=== PATIENT | female | born 1955 | race Hispanic/Latino ===

== ENCOUNTER 2023-04-15 08:36 | Observation (INO) | payer BC, OTHER ==
[2023-04-15 09:06] LABS: Absolute Lymphocytes (CBC) 1.8 K/uL (0.7-4.9); Hematocrit 43.4 % (36.0-45.0); Lymphocytes % 24.5 % (15.3-44.8); MCV 87.5 fL (80-100); MPV 9.2 fL (7.6-11.3); Platelets 204 thou/uL (152-406); RBC Red Blood Cell Count 4.96 M/uL (3.86-4.86)
[2023-04-15] MEDS ORDERED: NITROGLYCERIN 0.4 MG/TAB SL ONE (09:18)
[2023-04-15] MEDS ORDERED: ASPIRIN 81 MG CHEWABLE TABLET ONE (09:18)
[2023-04-15 09:26] LABS: Albumin 3.6 g/dL (3.4-5.0); Bilirubin Direct 0.2 mg/dL (0-0.2); Bilirubin Indirect, Calculated 0.4 mg/dL (0.2-0.8); Bilirubin Total 0.6 mg/dL (0.2-1.0); Magnesium 2.2 mg/dL (1.6-2.4); Potassium 4.1 mEq/L (3.5-5.1); Protein, Total 7.2 g/dL (6.4-8.2); Troponin High Sensitivity 3.8 pg/mL (<58.9)
--- NOTE | 2023-04-15 09:33 | RAD REPORT ---
EXAM DESCRIPTION: RAD - Chest Single View - 04/15/2023 9:21 am CLINICAL HISTORY: CHEST PAIN Chest pain. COMPARISON: No comparisons FINDINGS: Portable technique limits examination quality. The lungs are grossly clear. The heart is normal in size. No displaced fractures. IMPRESSION: No acute intrathoracic process suspected.
--- NOTE | 2023-04-15 11:04 | ER ---
Nurse's Notes [facility] Name: Lyn Judge Age: 68 yrs Sex: Female : 1955 Arrival Date: 04/15/2023 Time: 08:36 Bed 7 Private MD: Diagnosis: Chest pain, unspecified Presentation: 04/15 08:56 Chief complaint: Patient states: "I started having CP yesterday that feels tight and mb9 radiates to my right arm. I just had a stress test with Dr. Cowan Thursday and I'm waiting for the results." Pt denies N/SOB. Coronavirus screen: Vaccine status: Patient reports receiving the 2nd dose of the covid vaccine. Ebola Screen: No symptoms or risks identified at this time. Initial Sepsis Screen: Does the patient meet any 2 criteria? No. Patient's initial sepsis screen is negative. Does the patient have a suspected source of infection? No. Patient's initial sepsis screen is negative. Risk Assessment: Do you want to hurt yourself or someone else? Patient reports no desire to harm self or others. Onset of symptoms was 2022. 08:56 Method Of Arrival: Ambulatory mb9 08:56 Acuity: MARLA 3 mb9 Triage Assessment: 08:59 General: Appears in no apparent distress. Behavior is calm, cooperative. Pain: mb9 Complains of pain in chest Pain radiates to right arm Pain currently is 8 out of 10 on a pain scale. Quality of pain is described as tight Pain began 1 day ago. Is continuous. EENT: No signs and/or symptoms were reported regarding the EENT system. Neuro: Camacho Agitation-Sedation Scale (RASS): 0 - Alert and Calm Level of Consciousness is awake, alert, obeys commands, Oriented to person, place, time, situation, Appropriate for age. Cardiovascular: Reports chest pain, Heart tones S1 S2 present Patient's skin is warm and dry. Respiratory: Airway is patent Respiratory effort is even, unlabored, Respiratory pattern is regular, symmetrical, Breath sounds are clear bilaterally. GI: Abdomen is round non-distended, Bowel sounds present X 4 quads. Abd is soft and non tender X 4 quads. Patient currently denies nausea. : No signs and/or symptoms were reported regarding the genitourinary system. Derm: Skin is pink, warm \\T\\ dry. Musculoskeletal: Range of motion: intact in all extremities. Historical: - Allergies: 08:58 Iodine; mb9 - Home Meds: 16:40 glipizide 10 mg Oral tablet 1 tab daily [Active]; famotidine 20 mg Oral tablet 1 tab nj1 daily [Active]; - PMHx: 08:58 Diabetes mellitus; mb9 - PSHx: 08:58 Cholecystectomy; mb9 - Immunization history:: Adult Immunizations up to date. - Social history:: Smoking status: Patient denies any tobacco usage or history of. - Family history:: not pertinent. Screenin:01 [facility] ED Fall Risk Assessment (Adult) History of falling in the last 3 months, mb9 including since admission No falls in past 3 months (0 pts) Confusion or Disorientation No (0 pts) Intoxicated or Sedated No (0 pts) Impaired Gait No (0 pts) Mobility Assist Device Used No (0 pt) Altered Elimination No (0 pt) Score/Fall Risk Level 0 - 2 = Low Risk Oriented to surroundings, Maintained a safe environment, Educated pt \\T\\ family on fall prevention, incl call for assistance when getting out of bed. Abuse screen: Denies threats or abuse. Nutritional screening: No deficits noted. Tuberculosis screening: No symptoms or risk factors identified. Assessment: 09:00 Reassessment: see triage assessment. mb9 11:00 Reassessment: Patient appears in no apparent distress at this time. Patient and/or nj1 family updated on plan of care and expected duration. Pain level reassessed. Patient is alert, oriented x 3, equal unlabored respirations, skin warm/dry/pink. Patient denies pain at this time. 12:00 Reassessment: Patient appears in no apparent distress at this time. Patient and/or nj1 family updated on plan of care and expected duration. Pain level reassessed. Patient is alert, oriented x 3, equal unlabored respirations, skin warm/dry/pink. 13:00 Reassessment: Patient appears in no apparent distress at this time. Patient and/or nj1 family updated on plan of care and expected duration. Pain level reassessed. Patient is alert, oriented x 3, equal unlabored respirations, skin warm/dry/pink. 14:15 Reassessment: Patient appears in no apparent distress at this time. Patient and/or nj1 family updated on plan of care and expected duration. Pain level reassessed. Patient is alert, oriented x 3, equal unlabored respirations, skin warm/dry/pink. Patient denies pain at this time. 15:20 Reassessment: Patient appears in no apparent distress at this time. Patient and/or nj1 family updated on plan of care and expected duration. Pain level reassessed. Patient is alert, oriented x 3, equal unlabored respirations, skin warm/dry/pink. 15:20 Pain: Complains of pain in Head Pain currently is 10 out of 10 on a pain scale. Quality nj1 of pain is described as aching. 16:37 Reassessment: Patient appears in no apparent distress at this time. Patient and/or nj1 family updated on plan of care and expected duration. Pain level reassessed. Patient is alert, oriented x 3, equal unlabored respirations, skin warm/dry/pink. Patient states feeling better. 16:40 Reassessment: Unsuccessful attempt to call report at this time. nj1 16:55 Pain:. ko1 Vital Signs: 08:56 BP 159 / 82; Pulse 68; Resp 18; Temp 98; Pulse Ox 100% ; Weight 83.91 kg; Height 5 ft. mb9 3 in. ; Pain 8/10; 09:18 BP 136 / 66; Pulse 70; Resp 18; Pulse Ox 100% ; Height 5 ft. 4 in. ; mb9 09:51 BP 122 / 74; Pulse 78; Resp 16; Pulse Ox 95% ; ko1 10:58 BP 141 / 71; Pulse 70; Resp 17; Pulse Ox 99% ; nj1 12:00 BP 139 / 75; Pulse 70; Resp 17; Pulse Ox 96% ; nj1 13:00 BP 153 / 72; Pulse 70; Resp 14; Pulse Ox 97% ; nj1 14:15 BP 140 / 57; Pulse 73; Resp 19; Pulse Ox 98% ; nj1 16:38 BP 140 / 73; Pulse 75; Resp 16; Pulse Ox 98% ; Pain 6/10; nj1 08:56 Body Mass Index 32.77 (83.91 kg, 162.56 cm) mb9 08:56 Pain Scale: Adult mb9 16:38 Pain Scale: Adult nj1 ED Course: 08:38 Patient arrived in ED. mg5 08:40 Kaveh Adair MD is Attending Physician. rt 08:48 EKG done, by ED staff, reviewed by Kaveh Adair MD. em1 08:56 Mica Kasper, RN is Primary Nurse. mb9 08:58 Triage completed. mb9 08:58 Arm band placed on. mb9 09:01 Inserted saline lock: 22 gauge in left forearm, using aseptic technique. Patient mb9 maintains SpO2 saturation greater than 95% on room air. 09:01 No provider procedures requiring assistance completed. mb9 09:01 Placed in gown. Bed in low position. Call light in reach. Side rails up X 1. Client mb9 placed on continuous cardiac and pulse oximetry monitoring. NIBP monitoring applied. monitor technician on. 09:23 XRAY Chest (1 view) In Process Unspecified. EDMS 11:03 Denver Cisneros MD is Hospitalizing Provider. rt 16:55 Patient admitted, IV remains in place. ko1 16:55 Provided Education on: na. ko1 Administered Medications: 09:06 Drug: Aspirin PO Chewable Tablet 324 mg PO once; 81 mg tablets x 4 Route: PO; mb9 09:18 Follow up: Response: No adverse reaction mb9 09:06 Drug: Nitroglycerin Sublingual 0.4 mg Sublingual once; every five minute if needed x3 mb9 Route: Sublingual; 09:16 Drug: Nitroglycerin Sublingual 0.4 mg Sublingual once; every five minute if needed x3 mb9 Route: Sublingual; 15:20 Drug: Acetaminophen PO 1000 mg PO once Route: PO; nj1 Medication: 09:01 VIS not applicable for this client. mb9 Outcome: 11:03 Decision to Hospitalize by Provider. rt 16:55 Admitted to Tele accompanied by tech, via wheelchair, room 415, with chart, ko1 16:56 Condition: stable ko1 16:56 Instructed on the need for admit, 16:57 Patient left the ED. ko1 Signatures: Dispatcher [employer] EDMS Cesar Fung em1 Jojo Tolbert, KARMEN RN Mica Coles, RN RN Kaveh Monreal MD MD rt [place] RN RN nj1 Brandie Aguirre mg5 Corrections: (The following items were deleted from the chart) 16:40 16:38 Pulse 75bpm; Resp 16bpm; Pulse Ox 98%; Pain 6/10, Adult; nj1 nj1 16:41 08:58 Home Meds: insulin: Lyumjev; mb9 nj1
--- NOTE | 2023-04-15 11:04 | EDPHYS ---
Physician Documentation [facility] Name: Lyn Judge Age: 68 yrs Sex: Female : 1955 Arrival Date: 04/15/2023 Time: 08:36 Bed 7 Private MD: ED Physician Kaveh Adair HPI: 04/15 09:07 This 68 yrs old Female presents to ER via Ambulatory with complaints of Chest rt Pain. 09:07 Patient presents to the ED with chest pain starting yesterday evening. She describes as rt pressure-like and discomfort. She states that it radiates to her right arm and is tingling on her right arm. Denies other acute complaints at this time. Of note, patient did have a stress test performed last Thursday but does not know the results for that, has an appointment with her settlement clerk next week to discuss results. Denies other acute complaints at this time, symptoms are moderate severity, no other aggravating or alleviating factors.. Historical: - Allergies: 08:58 Iodine; mb9 - Home Meds: 16:40 glipizide 10 mg Oral tablet 1 tab daily [Active]; famotidine 20 mg Oral tablet 1 tab nj1 daily [Active]; - PMHx: 08:58 Diabetes mellitus; mb9 - PSHx: 08:58 Cholecystectomy; mb9 - Immunization history:: Adult Immunizations up to date. - Social history:: Smoking status: Patient denies any tobacco usage or history of. - Family history:: not pertinent. ROS: 09:07 Constitutional: Negative for fever, chills, and weight loss, Respiratory: Negative for rt shortness of breath, cough, wheezing, and pleuritic chest pain, Abdomen/GI: Negative for abdominal pain, nausea, vomiting, diarrhea, and constipation, MS/Extremity: Negative for injury and deformity, Skin: Negative for injury, rash, and discoloration, Neuro: Negative for headache, weakness, numbness, tingling, and seizure, Psych: Negative for depression, anxiety, suicide ideation, homicidal ideation, and hallucinations, 09:07 Cardiovascular: Positive for chest pain, Negative for edema, Exam: 09:07 Constitutional: This is a well developed, well nourished patient who is awake, alert, rt and in no acute distress. Neck: Trachea midline, no thyromegaly or masses palpated, and no cervical lymphadenopathy. Supple, full range of motion without nuchal rigidity, or vertebral point tenderness. No Meningismus. Chest/axilla: Normal chest wall appearance and motion. Nontender with no deformity. No lesions are appreciated. Cardiovascular: Regular rate and rhythm with a normal S1 and S2. No gallops, murmurs, or rubs. Normal PMI, no JVD. No pulse deficits. Respiratory: Lungs have equal breath sounds bilaterally, clear to auscultation and percussion. No rales, rhonchi or wheezes noted. No increased work of breathing, no retractions or nasal flaring. Abdomen/GI: Soft, non-tender, with normal bowel sounds. No distension or tympany. No guarding or rebound. No evidence of tenderness throughout. Skin: Warm, dry with normal turgor. Normal color with no rashes, no lesions, and no evidence of cellulitis. MS/ Extremity: Pulses equal, no cyanosis. Neurovascular intact. Full, normal range of motion. Neuro: Awake and alert, GCS 15, oriented to person, place, time, and situation. Cranial nerves II-XII grossly intact. Motor strength 5/5 in all extremities. Sensory grossly intact. Cerebellar exam normal. Normal gait. Psych: Awake, alert, with orientation to person, place and time. Behavior, mood, and affect are within normal limits. 09:07 ECG was reviewed by the Attending Physician. Vital Signs: 08:56 BP 159 / 82; Pulse 68; Resp 18; Temp 98; Pulse Ox 100% ; Weight 83.91 kg; Height 5 ft. mb9 3 in. ; Pain 8/10; 09:18 BP 136 / 66; Pulse 70; Resp 18; Pulse Ox 100% ; Height 5 ft. 4 in. ; mb9 09:51 BP 122 / 74; Pulse 78; Resp 16; Pulse Ox 95% ; ko1 10:58 BP 141 / 71; Pulse 70; Resp 17; Pulse Ox 99% ; nj1 12:00 BP 139 / 75; Pulse 70; Resp 17; Pulse Ox 96% ; nj1 13:00 BP 153 / 72; Pulse 70; Resp 14; Pulse Ox 97% ; nj1 14:15 BP 140 / 57; Pulse 73; Resp 19; Pulse Ox 98% ; nj1 16:38 BP 140 / 73; Pulse 75; Resp 16; Pulse Ox 98% ; Pain 6/10; nj1 08:56 Body Mass Index 32.77 (83.91 kg, 162.56 cm) mb9 08:56 Pain Scale: Adult mb9 16:38 Pain Scale: Adult nj1 MDM: 08:42 Patient medically screened. rt 10:52 Differential diagnosis: acute myocardial infarction, coronary artery disease unstable rt angina. HEART Score: History: Highly Suspicious (2), ECG: Normal (0), Age: > or = 65 years (2), Risk Factors: 1 or 2 risk factors (1), Troponin: < or = 1 x Normal Limit (0), Total Score = 5. The patient was given aspirin in the Emergency Department. Data reviewed: vital signs, nurses notes. Consideration of Admission/Observation Patient was admitted/placed on observation. Management of patient was discussed with the following: Hospitalist: Agrees to admit. Teacher Adventure Education: Real Time Trader recommends admission. I considered the following discharge prescriptions or medication management in the emergency department Medications were administered in the Emergency Department. See MAR. Independent interpretation of the following test(s) in the Emergency Department X-Ray: My interpretation is No consolidation seen on interpretation of x-ray images. Care significantly affected by the following chronic conditions: Diabetes. Counseling: I had a detailed discussion with the patient and/or guardian regarding the historical points, exam findings, and any diagnostic results supporting the discharge/admit diagnosis, lab results, radiology results. Response to treatment: the patient's symptoms have resolved after treatment. 04/15 08:52 Order name: Basic Metabolic Panel; Complete Time: 09:29 rt 04/15 08:52 Order name: CBC with Diff; Complete Time: 09:29 rt 04/15 08:52 Order name: LFT's; Complete Time: 09:29 rt 04/15 08:52 Order name: Magnesium; Complete Time: 09:29 rt 04/15 08:52 Order name: Troponin HS; Complete Time: 09:29 rt 04/15 13:26 Order name: Urinalysis w/ reflexes EDMS 04/15 13:26 Order name: Basic Metabolic Panel EDMS 04/15 13:26 Order name: Basic Metabolic Panel EDMS 04/15 13:26 Order name: CBC with Automated Diff EDMS 04/15 13:26 Order name: CBC with Automated Diff EDMS 04/15 13:26 Order name: Lipid Profile EDMS 04/15 13:26 Order name: Lipid Profile EDMS 04/15 13:26 Order name: Magnesium EDMS 04/15 13:26 Order name: Magnesium EDMS 04/15 13:26 Order name: Phosphorus EDMS 04/15 13:26 Order name: Phosphorus EDMS 04/15 13:26 Order name: Troponin High Sensitivity EDMS 04/15 13:26 Order name: Troponin High Sensitivity EDMS 04/15 13:26 Order name: Troponin High Sensitivity EDMS 04/15 13:26 Order name: Hemoglobin A1c EDMS 04/15 13:29 Order name: T4 Free EDMS 04/15 13:29 Order name: Thyroid Stimulating Hormone EDMS 04/15 08:52 Order name: XRAY Chest (1 view); Complete Time: 09:57 rt 04/15 08:52 Order name: EKG; Complete Time: 08:53 rt 04/15 13:26 Order name: CONS Physician Consult EDMS 04/15 08:52 Order name: Cardiac monitoring; Complete Time: 09:02 rt 04/15 08:52 Order name: EKG - Nurse/Tech; Complete Time: 09:02 rt 04/15 08:52 Order name: IV Saline Lock; Complete Time: 09:02 rt 04/15 08:52 Order name: Labs collected and sent; Complete Time: 09:02 rt 04/15 08:52 Order name: O2 Per Protocol; Complete Time: 09:02 rt 04/15 08:52 Order name: O2 Sat Monitoring; Complete Time: 09:02 rt EC:07 Rate is 68 beats/min. Rhythm is regular, Normal Sinus Rhythm with No ectopy. QRS [place] rt is Normal. LA interval is normal. QRS interval is normal. QT interval is normal. No Q waves. T waves are Normal. No ST changes noted. Administered Medications: 09:06 Drug: Aspirin PO Chewable Tablet 324 mg PO once; 81 mg tablets x 4 Route: PO; mb9 09:18 Follow up: Response: No adverse reaction mb9 09:06 Drug: Nitroglycerin Sublingual 0.4 mg Sublingual once; every five minute if needed x3 mb9 Route: Sublingual; 09:16 Drug: Nitroglycerin Sublingual 0.4 mg Sublingual once; every five minute if needed x3 mb9 Route: Sublingual; 15:20 Drug: Acetaminophen PO 1000 mg PO once Route: PO; nj1 Disposition Summary: 04/15/23 11:03 Hospitalization Ordered Notes: Hospitalization Status: Observation rt Provider: Denver Cisneros rt Location: Telemetry/MedSurg (observation) rt Condition: Stable rt Problem: new rt Symptoms: have improved rt Bed/Room Type: Standard rt Room Assignment: 415(04/15/23 15:52) bd Diagnosis - Chest pain, unspecified rt Forms: - Medication Reconciliation Form rt - SBAR form rt - Leadership Thank You Letter rt Signatures: Dispatcher [employer] EDMS Kim Perez bd Mica Kasper RN RN mb9 Kaveh Adair MD MD rt [place] RN RN nj1 Corrections: (The following items were deleted from the chart) 13:27 13:26 T4 Free ordered. EDMS EDMS 13:27 13:26 Thyroid Stimulating Hormone ordered. EDMS EDMS 15:52 11:03 rt bd 16:41 08:58 Home Meds: insulin: Lyumgary; renetta nj1
--- NOTE | 2023-04-15 12:22 | EKG ---
Test Date: 2023-04-15 Test Time: 08:45:49 Rn Burn: SARANYA MEASUREMENT RESULTS: Intervals: Rate: 68 IL: 170 QRSD: 68 QT: 392 QTc: 416 Tonica: P: 46 IL: 170 QRS: 39 T: 72 INTERPRETIVE STATEMENTS: Normal sinus rhythm Normal ECG No previous ECG available for comparison Electronically Signed On 04-15-23 12:22:12 CDT by Lucho Cowan
[2023-04-15] MEDS ORDERED: MORPHINE 2 MG/ML SYR IV PRN (13:14)
[2023-04-15] MEDS ORDERED: ONDANSETRON 4 MG/2 ML VIAL IV PRN (13:14)
[2023-04-15] MEDS ORDERED: ACETAMINOPHEN 500 MG TAB ONE (15:29)
[2023-04-15 16:15] LABS: Thyroid Stimulating Hormone 2.26 uIU/mL (0.358-3.740); Troponin High Sensitivity 4.4 pg/mL (<58.9)
[2023-04-15] MEDS: INSULIN REGULAR (HUMAN) 100 UNIT/ML SQ SCH ×2 (16:30→21:00)
[2023-04-15 17:50] VITALS: BMI 32.5
[2023-04-15] MEDS ORDERED: PNEUMOCOCCAL VACCINE 0.5 ML IMVAC ONE (18:00)
--- NOTE | 2023-04-15 18:48 | P.HP ---
Certification for Inpatient Patient admitted to: Observation Patient will require the following post-hospital care: None Practitioner: I am a practitioner with admitting privileges, knowledge of patient current condition, hospital course, and medical plan of care. Services: Services provided to patient in accordance with Admission requirements found in Title 42 Section 412.3 of the Code of Federal Regulations Patient History Date of Service: 04/15/23 Reason for admission: Chest pain r/o ACS History of Present Illness: Lyn Judge a 68-year-old female with past medical history diabetes and GERD presents to the ED with chest pain started yesterday evening. Lyn states it is more like chest pressure and discomfort that radiates and tingles down her right arm. Lyn states she had a stress test done last Thursday but does not know the results and has an appoint meant with her director of scientific research, Dr. Cowan, next week to discuss those results. Echo was also performed recently as outpatient. Ischial vitals BP 159/82, HR 68, respirations 18, temp 98, pulse ox 100% on room air. Significant labs A1c 7.9, TSH 2.260, troponin 3.8 with redraw of 4.4. EKG is normal sinus rhythm, QT/QTc 392/416, heart rate 68, no ST elevation. Chest x-ray showing "no acute intrathoracic process suspect". Lyn will be admitted to hospitalist service for further evaluation of chest pain rule out ACS. Allergies iodine Allergy (Unknown, Verified 04/15/23 17:54) Hives Home Medications: Famotidine 20 mg PO DAILY 04/15/23 Fexofenadine HCl [Fern Hives] 180 mg PO DAILY 04/15/23 Glipizide [Glipizide Xl] 1 tab PO DAILY 04/15/23 - Past Medical/Surgical History Has patient received pneumonia vaccine in the past: No Diabetic: Yes -: Diabetes -: Cholecystectomy -: Both feet - Social History Smoking Status: Never smoker Alcohol use: No CD- Drugs: No Caffeine use: No Place of Residence: Home Review of Systems General: Chills Respiratory: Cough, Shortness of Breath Cardiovascular: Palpitations, Orthopnea, Other (chest pressure and discomfort) Neurological: Other (dizziness) Physical Examination - Vital Signs Temperature: 97.1 F Blood Pressure: 129/62 Pulse: 71 Respirations: 16 Pulse Ox (%): 96 - Physical Exam General: Alert, In no apparent distress, Oriented x3 HEENT: Atraumatic, Normocephalic, PERRLA Neck: Supple, 2+ carotid pulse no bruit, JVD not distended Respiratory: Clear to auscultation bilaterally, Normal air movement Cardiovascular: No edema, Normal pulses, Regular rate/rhythm, Normal S1 S2 Capillary refill: <2 Seconds Gastrointestinal: Normal bowel sounds, Soft and benign Musculoskeletal: No clubbing, No swelling, No contractures Integumentary: No rashes, No breakdown, No significant lesion Neurological: Normal speech, Normal strength at 5/5 x4 extr, Normal tone - Studies Laboratory Data (last 24 hrs) 04/15/23 04/15/23 08:55 08:55 WBC 7.30 Hgb 14.7 Hct 43.4 Plt Count 204 Sodium 141 Potassium 4.1 BUN 9 Creatinine 0.48 L Glucose 152 H Magnesium 2.2 Total Bilirubin 0.6 AST 16 ALT 27 Alkaline Phosphatase 132 H Assessment and Plan - Plan Assessment and plan Chest Pain r/o ACS - Evaluation thus far: - EKG: No obvious ST segment changes, trend - Serial troponin 3.8/4.4 - transthoracic echocardiogram performed by Dr. Cowan - chest x-ray negative -TSH 2.260 - Ordered d-dimer - Management plan: - Consult Cardiology - recommendations appreciated - S/P aspirin 324 mg PO x 1 in ED - Start daily baby aspirin - Symptom control with PRN morphine - If CAD is confirmed, plan to start beta-catia, DORON-inhibitor/ARB, statin with 24 hours IDDM -Accucheck with SSI -Serum Glucose 154 -A1C 7.9 DVT ppx lovenox Full Code LOS 2 days Discharge Plan: Home Plan to discharge in: 48 Hours - Advance Directives Does patient have a Living Will: No Does patient have a Durable POA for Healthcare: No Time Spent Managing Pts Care (In Minutes): 55
[2023-04-15] MEDS ORDERED: NITROGLYCERIN 0.4 MG/TAB SL PRN (19:06)
[2023-04-15] MEDS ORDERED: ATORVASTATIN 40 MG TAB PO SCH (21:00)
[2023-04-16 02:15] LABS: Hematocrit 40.1 % (36.0-45.0); Lymphocytes % 34.5 % (15.3-44.8); MPV 9.4 fL (7.6-11.3); Platelets 189 thou/uL (152-406); RBC Red Blood Cell Count 4.56 M/uL (3.86-4.86)
[2023-04-16 02:29] LABS: Magnesium 2.2 mg/dL (1.6-2.4); Phosphorus 3.9 mg/dL (2.5-4.9); Potassium 3.5 mEq/L (3.5-5.1)
[2023-04-16] MEDS: INSULIN REGULAR (HUMAN) 100 UNIT/ML SQ SCH ×2 (07:30→11:30)
[2023-04-16] MEDS ORDERED: POTASSIUM CL SA 10 MEQ TAB PO ONE (09:00)
[2023-04-16] MEDS ORDERED: ENOXAPARIN 40 MG/0.4 ML SQ SCH (09:00)
[2023-04-16] MEDS ORDERED: ASPIRIN EC 81 MG TAB PO SCH (09:00)
[2023-04-16 09:23] VITALS: O2SAT 96
[2023-04-16 09:35] VITALS: BP 137/66; TEMP 97.7
--- NOTE | 2023-04-16 10:29 | P.PN ---
Subjective Date of Service: 04/16/23 Chief Complaint: Chest pain r/o ACS HPI 04/15: Lyn Judge a 68-year-old female with past medical history diabetes and GERD presents to the ED with chest pain started yesterday evening. Lyn states it is more like chest pressure and discomfort that radiates and tingles down her right arm. Lyn states she had a stress test done last Thursday but does not know the results and has an appoint meant with her stunt man, Dr. Cowan, next week to discuss those results. Echo was also performed recently as outpatient. Initial vitals BP 159/82, HR 68, respirations 18, temp 98, pulse ox 100% on room air. Significant labs A1c 7.9, TSH 2.260, troponin 3.8 with redraw of 4.4. EKG is normal sinus rhythm, QT/QTc 392/416, heart rate 68, no ST elevation. Chest x-ray showing "no acute intrathoracic process suspect". Lyn will be admitted to hospitalist service for further evaluation of chest pain rule out ACS. 04/16: Lyn is awake with family at bedside, no acute distress. She reports Dr. Cowan had visited her today and plans to review her tests from his office with her later today. She denies fever, chills, SOB, Cp, and MURPHY. Review of Systems 10-point ROS is otherwise unremarkable Physical Examination - Vital Signs Temperature: 97.7 F Blood Pressure: 137/66 Pulse: 75 Respirations: 16 Pulse Ox (%): 96 Assessment And Plan - Plan Physical Exam General: Alert, In no apparent distress, Oriented x3 HEENT: Atraumatic, Normocephalic, PERRLA Neck: Supple, 2+ carotid pulse no bruit, JVD not distended Respiratory: Clear to auscultation bilaterally, Normal air movement Cardiovascular: No edema, Normal pulses, Regular rate/rhythm, Normal S1 S2 Capillary refill: <2 Seconds Gastrointestinal: Normal bowel sounds, Soft and benign Musculoskeletal: No clubbing, No swelling, No contractures Integumentary: No rashes, No breakdown, No significant lesion Neurological: Normal speech, Normal strength at 5/5 x4 extr, Normal tone Assessment and plan Chest Pain r/o ACS - Evaluation thus far: - EKG: No obvious ST segment changes, trend - Serial troponin 3.8/4.4/4.7 - transthoracic echocardiogram performed by Dr. Cowan - chest x-ray negative -TSH 2.260 - Management plan: - Consult Cardiology - recommendations appreciated - S/P aspirin 324 mg PO x 1 in ED - Start daily baby aspirin and statin - Symptom control with PRN morphine - If CAD is confirmed, plan to start beta-catia, DORON-inhibitor/ARB, statin with 24 hours IDDM -Accucheck with SSI -Serum Glucose 154 -A1C 7.9 DVT ppx lovenox Full Code LOS 2 days Discharge Plan: Home Time Spent Managing PTS Care (In Minutes): 35
--- NOTE | 2023-04-16 14:23 | ECHO ---
HEIGHT: 5 ft 3 in WEIGHT: 184 lb 0 oz DATE OF STUDY: 04/16/[address]: Denver Cisneros MD 2-DIMENSIONAL: YES M.MODE: YES DOPPLER: YES COLOR FLOW: YES TDS: PORTABLE: YES DEFINITY: BUBBLE STUDY: DIAGNOSIS: CHEST PAIN, RULE OUT ACUTE CONGESTIVE HEART FAILURE CARDIAC HISTORY: CATHERIZATION: NO SURGERY: NO PROSTHETIC VALVE: NO PACEMAKER: NO MEASUREMENTS (cm) DIASTOLIC (NORMALS) SYSTOLIC (NORMALS) IVSd 0.8 (0.6-1.2) LA Diam 2.7 (1.9-4.0) LVEF 60% LVIDd 3.7 (3.5-5.7) LVIDs 2.8 (2.0-3.5) %FS % LVPWd 0.8 (0.6-1.2) Ao Diam 2.6 (2.0-3.7) 2 DIMENSIONAL ASSESSMENT: RIGHT ATRIUM: NORMAL LEFT ATRIUM: NORMAL RIGHT VENTRICLE: NORMAL LEFT VENTRICLE: NORMAL TRICUSPID VALVE: MILD TRICUSPID REGURGITATION MITRAL VALVE: MILD MITRAL REGURGITATION PULMONIC VALVE: MILD PULMONIC INSUFFICIENCY AORTIC VALVE: NORMAL PERICARDIAL EFFUSION: NONE AORTIC ROOT: NORMAL LEFT VENTRICULAR WALL MOTION: NORMAL DOPPLER/COLOR FLOW: SEE BELOW COMMENTS: 1. NORMAL LEFT VENTRICULAR EJECTION FRACTION 55-60% 2. NORMAL WALL MOTION 3. GRADE I DIASTOLIC DYSFUNCTION 4. MILD MITRAL REGURGITATION, TRICUSPID REGURGITATION, PULMONIC INSUFFICIENCY TECHNOLOGIST: EMILY SERRANO
--- NOTE | 2023-04-16 18:33 | CON ---
Date of Consultation: 04/16/2023 Reason For Consultation: Chest pain. History Of Present Illness: 68-year-old female, history of diabetes, acid reflux, presented. Chest pain started yesterday evening. She feels as tightness that goes to her right arm. She had a stress test last week. It was normal. Echo was normal and she is chest-pain free at the present time. Past Medical History: As outlined above in the HPI. Medications: Refer to reconciliation sheet for detailed list. Allergies: IODINE. Family History: No premature coronary artery disease or cancer. Social History: Does not smoke or drink. Does not use any drugs. Review of Systems: All systems reviewed and they were negative except what mentioned in the HPI. Physical Examination: Vital Signs: Reviewed. Head and Neck: Pupils are equal, reactive to light. Intact eye movements. No JVD. No cervical lym phadenopathy. Neck is supple. Thyroid is not enlarged. Lungs: Clear to auscultation bilaterally. No rhonchi, wheezing, or crackles. No accessory muscle u se. Heart: Regular rate and rhythm. No extra sounds. Abdomen: Soft, nontender. Bowel sounds positive. No organomegaly. No masses or hernia. No rigidi ty or rebound. Extremities: No edema, clubbing, cyanosis. Intact pulses. Skin: No rash or nodule. Neurologic: Alert, awake, oriented x3. No acute focal deficits appreciated. Investigations: Cardiac enzymes are negative. BUN is 12, creatinine 0.46, and hemoglobin is 13.4. Assessment And Recommendations: 1.Chest pain, atypical with negative stress test last week and patient has been chest pain free and negative cardiac enzymes. She can be released from cardiology standpoint and follow up with me in e office next week. I will put her on Imdur 30 mg on discharge. 2.Dyslipidemia. Continue Lipitor 40 mg q.h.s. 3.Diabetes, appears to be controlled. SR/MODL Voice ID: [id number] Report ID: [id number]
--- NOTE | 2023-04-17 06:33 | P.DS ---
Admission Date: 04/15/23 Discharge Date: 04/16/23 Disposition: ROUTINE DISCHARGE Discharge Condition: GOOD Reason for Admission: Chest pain r/o ACS Brief History of Present Illness: Lyn Judge a 68-year-old female with past medical history diabetes and GERD presents to the ED with chest pain started yesterday evening. Lyn states it is more like chest pressure and discomfort that radiates and tingles down her right arm. 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 Cowan, next week to discuss those results. Echo was also performed recently as outpatient. Ischial vitals BP 159/82, HR 68, respirations 18, temp 98, pulse ox 100% on room air. Significant labs A1c 7.9, TSH 2.260, troponin 3.8 with redraw of 4.4. EKG is normal sinus rhythm, QT/QTc 392/416, heart rate 68, no ST elevation. Chest x-ray showing "no acute intrathoracic process suspect". Lyn will be admitted to hospitalist service for further evaluation of chest pa in rule out ACS. Hospital Course: Lyn is a pleasant 68-year-old female with a past medical history significant for diabetes and GERD who was admitted to the [facility] on 04/15/2023 for chest pain rule out ACS and heart failure. Lyn presented to the ED with chest pressure that radiates and tingles down her right arm, symptoms began the night prior to arrival. Upon admission she was given 1 dose of Lovenox and aspirin. Echo was ordered showing EF of 55 to 60% with normal wall motion. Stress test was normal at Dr. Cowan's office one week ago. She is now chest pain-free with negative cardiac enzymes. Dr. Cowan recommends discharge at this time with follow up at his office in one week. Dr. Cowan will provide prescriptions of Imdur and lipitor. Lyn is ambulating independently, tolerating PO diet, no acute distress with stable blood pressure. On 04/16/2023, Lyn was seen on morning rounds and deemed medically stable for discharge. Lyn was discharged with instructions to schedule follow-up appointments with Dr. Cowan and PCP. Lyn was provided prescription for losartan. The patient and family members were given the opportunity to ask questions and reported no further questions. Furthermore, all questions were answered to the best of my ability. A copy of this discharge summary will be sent to the above providers to facilitate continuity of care. Today, I personally spent 55 minutes with 50, of which greater than 50% of the time was spent in patient education, counseling, and coordination of care as described above. Vital Signs/Physical Exam: Temp Pulse Resp BP Pulse Ox 97.7 F 75 16 137/66 96 04/16/23 10:29 04/16/23 10:29 04/16/23 10:29 04/16/23 10:04/16/23 10:29 Laboratory Data at Discharge: WBC 5.80 thou/uL (4.3-10.9) 04/16/23 01:32 Hgb 13.4 g/dL (12.0-15.0) D 04/16/23 01:32 Hct 40.1 % (36.0-45.0) 04/16/23 01:32 Plt Count 189 thou/uL (152-406) 04/16/23 01:32 Sodium 141 mEq/L (136-145) 04/16/23 01:32 Potassium 3.5 mEq/L (3.5-5.1) D 04/16/23 01:32 BUN 12 mg/dL (7-18) 04/16/23 01:32 Creatinine 0.46 mg/dL (0.55-1.02) L 04/16/23 01:32 Glucose 186 mg/dL (74-106) H 04/16/23 01:32 Phosphorus 3.9 mg/dL (2.5-4.9) 04/16/23 01:32 Magnesium 2.2 mg/dL (1.6-2.4) 04/16/23 01:32 Total Bilirubin 0.6 mg/dL (0.2-1.0) 04/15/23 08:55 AST 16 U/L (15-37) 04/15/23 08:55 ALT 27 U/L (13-56) 04/15/23 08:55 Alkaline Phosphatase 132 U/L (45-117) H 04/15/23 08:55 Triglycerides 100 mg/dL (<150) 04/16/23 01:32 Cholesterol 109 mg/dL (<200) 10/19/23 01:32 HDL Cholesterol 54 mg/dL (40-60) 04/16/23 01:32 Cholesterol/HDL Ratio 2.02 04/16/23 01:32 Home Medications: Famotidine 20 mg PO DAILY 04/15/23 Fexofenadine HCl [Fern Hives] 180 mg PO DAILY 04/15/23 Glipizide [Glipizide Xl] 1 tab PO DAILY 04/15/23 Losartan Potassium [Cozaar*] 50 mg PO BID #60 tablet 04/16/23 New Medications: Losartan Potassium [Cozaar*] 50 mg PO BID #60 tablet Physician Discharge Instructions: 1. Please call and schedule a follow-up appointment with your PCP in 3-5 days 2. Please call and schedule a follow-up appointment with Dr. Cowan in one week. - Please follow-up with your PCP for medication refills/adjustments New prescription: losartan Diet: AHA Activity: Fall precautions Followup: OOT,OOT [Primary Care Provider] - 1-2 Weeks (call to schedule an appointment) Lucho Cowan MD [ACTIVE - CAN ADMIT] - 1 Week (call to schedule an appointment) Time spent managing pt's care (in minutes): 55
== END 2023-04-16 17:27 | disposition home or self-care (01) ==
LOC: ER 08:36 → ERHOLD 13:14 → 4TH 16:06
PROVIDERS: ADMIT Hospitalist; ATTEND Hospitalist
DX: R07.9 Chest pain, unspecified (principal); E11.9 Type 2 diabetes mellitus without complications; K21.9 Gastro-esophageal reflux disease without esophagitis; Z91.09 Other allergy status, other than to drugs and biological substances; E78.5 Hyperlipidemia, unspecified; Z23 Encounter for immunization
CPT/HCPCS: 36415; 71045; 80048; 80061; 80076; 82947; 83036; 83735; 84100; 84439; 84443; 84484; 85025; 93005; 93306; 99285; G0378; J1650